=== PATIENT | female | born 1990 | race Caucasian/White ===

== ENCOUNTER 2022-06-08 16:20 | Emergency (ER) | payer OTHER ==
[2022-06-08 16:35] VITALS: BP 131/82; PULSE 89; RESP 18; TEMP 98.2; BMI 31.2
[2022-06-08 17:23] LABS: BASO % 1.1 % (0-2.0); EOS % 0.6 % (0-4.5); HEMATOCRIT 45.1 % (32.4-45.2); HEMOGLOBIN 14.8 GM/dL (10.7-15.3); LYMPH % 31.9 % (8-40); MCH 30.5 pg (25.7-33.7); MCHC 32.8 g/dl (32.0-36.0); MEAN PLT VOLUME 9.8 fl (7.5-11.1); MONO % 4.5 % (3.8-10.2); NEUT % 61.9 % (42.8-82.8); PLATELET COUNT 227 10^3/uL (134-434); RBC 4.85 M/mm3 (3.60-5.2); WHITE BLOOD COUNT 7.2 K/mm3 (4.0-10.0)
[2022-06-08 17:28] LABS: EPI CELLS 32 /uL (0-25.1); HYALINE CASTS 2 /uL (0-3.1); PH,URINE 6.5 (5.0-8.0); URINE APPEARANCE CLEAR; URINE BACTERIA 66 /uL (0-1359); URINE BILIRUBIN NEGATIVE (NEGATIVE); URINE COLOR YELLOW; URINE GLUCOSE (UA) NEGATIVE (NEGATIVE); URINE KETONE NEGATIVE (NEGATIVE); URINE LEUK ESTERASE 1+ (NEGATIVE); URINE NITRITE NEGATIVE (NEGATIVE); URINE PROTEIN NEGATIVE (NEGATIVE); URINE WBC 22 /uL (0-25.8)
[2022-06-08 17:29] LABS: HCG,QUALITATIVE URINE Negative
[2022-06-08 17:47] LABS: CALCIUM 9.2 mg/dL (8.5-10.1)
[2022-06-08 17:48] LABS: ALBUMIN 3.9 g/dl (3.4-5.0); BLOOD UREA NITROGEN 11.4 mg/dL (7-18)
[2022-06-08 17:51] LABS: CREATININE 0.8 mg/dL (0.55-1.3)
[2022-06-08 17:53] LABS: BILIRUBIN,TOTAL 0.6 mg/dL (0.2-1); TOT PROT 7.9 g/dl (6.4-8.2)
[2022-06-08 22:04] LABS: URINE RBC 79.2 /uL (0-23.9); YEAST NONE SEEN (NEGATIVE)
== END 2022-06-08 18:44 | disposition home or self-care (01) ==
LOC: JER 16:20
DX: R10.9 Unspecified abdominal pain (principal)
CPT/HCPCS: 36415; 76775-TC; 80053; 81003; 84703; 85025; 87077; 87086; 87491; 87591; 99284-25